=== PATIENT | male | born 1960 | race Caucasian/White ===

== ENCOUNTER 2017-08-26 23:39 | Emergency (ER) | payer MEDICAID ==
[~2017-08-26] VITALS: Ht 172.7 cm; Wt 91.0 kg
[~2017-08-26 23:39] MED LIST: FLUT1DIS3 INH; HYDR12.54 PO
[2017-08-27] MEDS ORDERED: IPRATROPIUM/ALBUTEROL 0.5-3(2.5)MG/3ML NEB HHN ONE (00:15)
[2017-08-27] MEDS ORDERED: METHYLPREDNISOLONE SOD SUCC 125 MG/2 ML VIAL IV ONE (00:15)
[2017-08-27 00:54] LABS: EOSINOPHILS % 8.1 % (0.0-5.0); HEMOGLOBIN. 13.9 g/dL (14.0-18.0); LYMPHOCYTES % 23.1 % (20.0-50.0); MEAN CORPUSCULAR HEMOGLOBIN 29.2 pg (28.0-32.0); MEAN CORPUSCULAR VOLUME 86.1 fL (80.0-94.0); MEAN PLATELET VOLUME 8.3 fl (7.4-10.4); NEUTROPHILS % 58.8 % (40.0-76.0); PLATELET 187 x1000/uL (130-400); RED BLOOD CELL COUNT 4.76 mill/uL (4.7-6.1); RED CELL DISTRIBUTION WIDTH 14.6 % (11.6-14.6)
[2017-08-27 01:29] LABS: CARBON DIOXIDE 26 mEq/L (21-32); CHLORIDE 107 mEq/L (98-107); TROPONIN I < 0.02 ng/mL (0.00-0.04)
[2017-08-27 02:17] VITALS: BP 160/80
== END 2017-08-27 02:18 | disposition home or self-care (01) ==
LOC: ER 23:39
DX: J45.901 Unspecified asthma with (acute) exacerbation (principal); J20.9 Acute bronchitis, unspecified; I10 Essential (primary) hypertension
CPT/HCPCS: 36415; 71010; 80048; 84484; 85025; 87804; 93005; 94640; 96374; 99285; J2930; Z7610; J7620

== ENCOUNTER 2017-09-07 17:22 | Emergency (ER) | payer MEDICAID ==
[~2017-09-07] VITALS: Ht 172.7 cm; Wt 91.0 kg
[2017-09-07] MEDS ORDERED: IPRATROPIUM BROMIDE (0.02%) 0.5MG/2.5ML NEB HHN STA (21:44)
[2017-09-07] MEDS ORDERED: ALBUTEROL (0.083%) 2.5MG/3ML NEB HHN STA (21:44)
[2017-09-07] MEDS ORDERED: PREDNISONE 20MG TABLET PO STA (21:44)
[2017-09-08 00:25] VITALS: BP 138/67
== END 2017-09-08 00:33 | disposition home or self-care (01) ==
LOC: ER 17:26
DX: J45.909 Unspecified asthma, uncomplicated (principal); I10 Essential (primary) hypertension
CPT/HCPCS: 71010; 94644; 99285; J7512; J7611; Z7610

== ENCOUNTER 2017-11-03 01:51 | Emergency (ER) | payer MEDICAID ==
[~2017-11-03] VITALS: Ht 165.1 cm; Wt 91.0 kg
[2017-11-03] MEDS ORDERED: IPRATROPIUM BROMIDE (0.02%) 0.5MG/2.5ML NEB HHN STA ×2 (06:45→08:38)
[2017-11-03] MEDS ORDERED: METHYLPREDNISOLONE SOD SUCC 125 MG/2 ML VIAL IV STA (06:45)
[2017-11-03] MEDS ORDERED: ALBUTEROL (0.083%) 2.5MG/3ML NEB HHN STA ×2 (06:45→08:38)
[2017-11-03 09:25] VITALS: BP 140/82
== END 2017-11-03 09:30 | disposition home or self-care (01) ==
LOC: ER 01:51
DX: J45.909 Unspecified asthma, uncomplicated (principal); I10 Essential (primary) hypertension; R06.2 Wheezing; R05 Cough
CPT/HCPCS: 71045; 94640; 96374; 99284; J2930; J7611; Z7610

== ENCOUNTER 2017-12-21 11:42 | Emergency (ER) | payer MEDICAID ==
[~2017-12-21] VITALS: Ht 172.7 cm; Wt 91.0 kg
[2017-12-21] MEDS ORDERED: ALBUTEROL (0.083%) 2.5MG/3ML NEB HHN STA (11:46)
[2017-12-21] MEDS ORDERED: PREDNISONE 20MG TABLET PO STA (11:46)
[2017-12-21] MEDS ORDERED: IPRATROPIUM BROMIDE (0.02%) 0.5MG/2.5ML NEB HHN STA (11:46)
[2017-12-21] MEDS ORDERED: ALBU18HF2 IH (11:47)
[2017-12-21 12:14] LABS: HEMATOCRIT. 40.9 % (42.0-52.0); HEMOGLOBIN. 14.4 g/dL (14.0-18.0); MEAN CORPUSCULAR HEMOGLOBIN 30.5 pg (28.0-32.0); MEAN CORPUSCULAR VOLUME 86.4 fL (80.0-94.0); MEAN PLATELET VOLUME 8.4 fl (7.4-10.4); PLATELET 172 x1000/uL (130-400); RED BLOOD CELL COUNT 4.73 mill/uL (4.7-6.1); RED CELL DISTRIBUTION WIDTH 13.5 % (11.6-14.6)
[2017-12-21] MEDS ORDERED: METHYLPREDNISOLONE SOD SUCC 125 MG/2 ML VIAL IV ONE (12:15)
[2017-12-21 12:22] LABS: PARTIAL THROMBOPLASTIN TIME 27.8 sec (23.4-31.0)
[2017-12-21 12:25] LABS: CHLORIDE 104 mEq/L (98-107)
[2017-12-21 12:45] LABS: PLATELET ESTIMATE NORMAL
[2017-12-21] MEDS ORDERED: IPRATROPIUM/ALBUTEROL 0.5-3(2.5)MG/3ML NEB HHN ONE (13:30)
[2017-12-21 14:43] VITALS: BP 173/69
== END 2017-12-21 14:46 | disposition home or self-care (01) ==
LOC: EDBEDREQ 13:30 → CANRESERV 14:30 → ER 14:39 → CANBEDREQ 16:06
DX: J45.901 Unspecified asthma with (acute) exacerbation (principal); I10 Essential (primary) hypertension
CPT/HCPCS: 36415; 71045; 80053; 83880; 84484; 85025; 85610; 85730; 87804; 93005; 94640; 96374; 99285; J2930; J7611; J7620; Z7610